=== PATIENT | female | born 1955 | race Caucasian/White ===

== ENCOUNTER 2019-03-04 11:09 | Emergency (ER) | payer OTHER | END 2019-03-04 13:15 | disposition home or self-care (01) | LOC: FTE 13:15 | DX: R04.0 Epistaxis (principal); S01.21XA Laceration without foreign body of nose, initial encounter; X58.XXXA Exposure to other specified factors, initial encounter; Y92.9 Unspecified place or not applicable | CPT/HCPCS: 99282; Z7502 ==